=== PATIENT | female | born 1945 | race Caucasian/White ===

== ENCOUNTER 2022-02-07 06:25 | Day surgery (SDC) | payer OTHER ==
[~2022-02-07] VITALS: Ht 168 cm; Wt 73.0 kg
[~2022-02-07 06:25] MED LIST: ASCORBIC ACID500 MG PO; BACTRIM DS TAB1 EACH PO; BACTROBAN NASAL1 GM; CENTRUM ADULTS1 EACH PO; CIPRO500 MG PO; CYMBALTA 30MG C30 MG PO; FLEXERIL5 MG PO; LOPRESSOR25 MG PO; LOPRESSOR50 MG PO; MOBIC15 MG PO; NEURONTIN400 MG PO; VITAMIN B-121000 MC1 PO; VITAMIN B-625 MG PO; VITAMIN D250 MC1 PO; [UNRECOGNIZED DRUG - OTHER] PO
[2022-02-08 06:29] LABS: BASOPHIL 0.1 % (0-2); EOSINOPHIL 0.4 % (0-7); HCT 32.3 % (37.0-47.0); HGB 10.5 g/dl (12.5-16.0); LYMPHOCYTE 25.4 % (15-48); MCHC 32.5 g/dL (32.0-36.0); MONOCYTE 10.1 % (0-12); MPV 9.8 fL (6.0-9.5); NEUTROPHIL 63.4 % (41-80); NRBC 0; PLT 169 K/uL (150-400); RBC 3.39 M/uL (4.20-5.40); RDW 13.6 % (11.5-14.0); WBC 7.1 K/uL (4.0-10.5)
[2022-02-08 06:31] LABS: MCV 95.3 fL (78.0-100.0)
[2022-02-08 06:58] LABS: BUN/CREAT RATIO (CALC) 30.4 RATIO; CREATININE 0.69 mg/dL (0.51-0.95); POTASSIUM 3.8 mmol/L (3.5-5.1)
--- NOTE | 2022-02-08 08:06 | NUR ---
PT TO [facility] HOME THIS DATE. PT. HAS A RW. SHE REQUESTED [facility] FOR PT.
[2022-02-08] MEDS ORDERED: XARELTO10 MG PO (08:43)
[2022-02-08] MEDS ORDERED: FEOSOL325 MG PO (08:43)
[2022-02-08] MEDS ORDERED: OXYCODONE-ACET1 EAC1 PO (08:44)
--- NOTE | 2022-02-08 15:04 | NUR ---
PT D/C HOME WITH SON. PT. HAS A RW. PT. REQUESTED [facility]. PT. WAS ADVISED OF THE COST OF HER XARELTO WAS $72.69 PER [facility]. PT. WAS IN AGREEMENT WITH COST.
== END 2022-02-08 11:03 | disposition home health service (06) ==
LOC: FAS 06:25 → FMS 06:25 → FAS 11:30
PROVIDERS: Legal Medicine
DX: M16.12 Unilateral primary osteoarthritis, left hip (principal); I48.91 Unspecified atrial fibrillation; I10 Essential (primary) hypertension; Z79.899 Other long term (current) drug therapy
CPT/HCPCS: 36415; 73501; 76000; 80048; 85025; 86850; 86900; 86901; 94010; 94762; 97162; 97166; 97530-GP; 97535; C1713; C1776; J0171; J0697; J1100; J1170; J1885; J2250; J2270; J2405; J2704; J2795; J3010; J7120